=== PATIENT | female | born 1980 | race Caucasian/White ===

== ENCOUNTER 2017-02-27 03:21 | Inpatient (IN) | payer OTHER ==
[~2017-02-27] VITALS: Ht 167.6 cm; Wt 153.3 kg
[~2017-02-27 03:21] MED LIST: AMLODIPINE BESYL5 M1 PO; OMEPRAZOLE40 M1 PO
--- NOTE | 2017-02-27 14:08 | Operative Report ---
Operative/Inv Procedure Report Surgery Date: 02/27/17 Name of Procedure: Laparocopic Gastric Bypass, Laparoscopic Cholecystectomy Pre-Operative Diagnosis: Morbid Obesity BMI 58, MALGORZATA, Barretts esophagus, Cholelithiasis Post-Operative Diagnosis: Same Estimated Blood Loss: 50ml to 100ml Surgeon/Talent Engineer: TETE VENEGAS DO Anesthesia: general endotracheal tube IV Fluids: 2100 cc Drains: 10 Fr RUQ JOCELYN Drain Specimens: Gallbladder Complications: None Condition: Stable Operative Indication: This is a 36-year-old female that presented to the office for workup for bariatric surgery. After appropriate workup was completed we discussed with the patient the band, the sleeve, and the gastric bypass. The patient chose to undergo a gastric bypass. All risks including but not limited to bleeding, infection, leak, stricture, marginal ulcer, injury to surrounding bowel/ esophagus/stomach/liver/spleen, malabsorption/malnutrition, dumping syndrome, internal hernia/small bowel obstruction, DVT/PE, and mortality of 10/999 patients were discussed in detail. Patient was also found to have cholelithiasis during her preoperative workup and she was complaining of occasional epigastric postprandial discomfort. A laparoscopic cholecystectomy was discussed in detail and the patient preferred to have the procedure at the same time as the gastric bypass. I did explain to the patient that if the bypass took longer or there were any issues I will not do the lap cholecystectomy. All risks of the laparoscopic cholecystectomy including but not limited to bile leak and injury to surrounding duct/bowel were discussed in detail. The patient understood everything and decided to proceed. Operative/Procedure Note Note: The patient was brought to the operating room and placed on the table in supine position. Venodyne stockings were placed and adequate general endotracheal anesthesia was obtained. The patient was prepped and draped in standard surgical fashion. Began the procedure by making a 2 cm transverse incision supraumbilically and slightly to the left of the midline. Then using a 12 mm clear Visiport and a 10 mm 0 laparoscope the abdominal cavity was accessed. Great care was taken to go through the anterior rectus sheath, the posterior rectus sheath, and through the peritoneum. Once we entered the peritoneum the abdominal cavity was insufflated to 15 mmHg. Upon initial examination no obvious gross pathology was seen, a distended gallbladder was noted in the right upper quadrant. Accessory trocars were placed, 5 mm in the epigastrium for the Yolanda liver retractor. The liver retractor was inserted and the liver was retracted anteriorly exposing the hiatus, no obvious hiatal hernia was seen. 5 mm ports were placed in the right and left upper quadrant, 5 mm left lateral port, and a 12 mm right lateral port. Began the procedure by mobilizing the angle of His and the left hui of the diaphragm. The stomach was retracted towards the feet and the peritoneum was lysed until the left hui was clearly visualized. We then brought our attention to the lesser curvature, and at the second vessel we began accessing the retrogastric space. Was done using Harmonic scalpel maintaining hemostasis. Once the retrogastric space was accessed we began creating our pouch using 60 mm purple staple load 4. The pouch was created around an Nestor tube. Once the pouch was completely disconnected from the gastric remnant we examined the staple lines, some bleeding was noted and that was controlled using endoclips. We then brought our attention to the small bowel, the omentum was retracted above the transverse colon and the ligament of Treitz was identified. Of note the omentum was very heave and thick so it took some time to get the omentum above the transverse colon. The small bowel was run 50 cm and divided using 60 mm rizzo staple load. 2 clips were placed on the proximal staple line which was the biliopancreatic limb. That limb was run to the ligament of Treitz to assure that that was the blind limb. Following this the omentum was divided using Harmonic scalpel. After the omentum was divided the small bowel was coming up to the gastric pouch with no tension. At that point an enterotomy was made 5 cm from the prior divided distal staple line, jail between the mesenteric and antimesenteric side. A gastrotomy was made anterior to the staple line. A side to side gastrojejunostomy was created using 45 mm purple staple load approximately 3-3-1 /2 cm in diameter. The Nestor tube was passed through the common enterotomy, and the common enterotomy was closed using 2-0 Vicryl suture in a running fashion double layer. Following this the small bowel was clamped off distal to the anastomosis, and we preformed an air and a methylene blue leak test. No obvious leak was noted. All the methylene blue was suctioned out. The small bowel was then run 150 cm and an enterotomy was made on the antimesenteric side. Another enterotomy was made on the antimesenteric side of the biliopancreatic limb. A side to side functional end end jejunojejunostomy was created using 60 mm rizzo staple load. The common enterotomy was closed using a 60 mm rizzo staple load x 2. Some bleeding was noted from the staple line and that was controlled using endoclips as well. The mesenteric defect was closed using 2-0 Tycron suture in an interrupted fashion. At that point we examined both anastomoses no obvious bleeding was noted and both appeared intact. 2-0 Vicryl suture was placed at the distal angle of the gastrojejunostomy to take some tension off the anastomosis. And a 2-0 Vicryl suture was placed on the anterior surface of the gastrojejunostomy imbricating the staple line. At that point we brought our attention to the gallbladder in the right upper quadrant. The gallbladder was distended with omental adhesions around it. A 5 mm port was placed right upper quadrant in the anterior axillary line, 2 fingerbreadths below the costal margin. The gallbladder was grasped with the lateralmost trocar and retracted up over the liver. Omental adhesions were taken down using harmonc scalpel and blunt dissection. Using other 2 accessory trocars the infundibulum was grasped and the peritoneum was lysed using blunt dissection and using hook electrocautery. The cystic duct and cystic artery were visualized. The common bile duct was visualized and it was away from our area of dissection. The cystic duct and artery were skeletonized and divided, 3 clips to stay and one clip on the gallbladder side for the duct and the artery was divided using harmonic scalpel. The gallbladder was dissected off the liver bed using hook electrocautery maintaining hemostasis. Prior to completely removing the gallbladder off the liver bed we examined the area of dissection no obvious bile leak or bleeding was noted, the clips appeared to be in good position. The gallbladder was completely detached from the liver bed. A 10 mm Endobag was introduced through the periumbilical trocar site. The gallbladder was placed in the bag and removed through the umbilicus. The abdomen was reinsufflated. We switched back to a 10 mm laparoscope and examined our area of dissection. No obvious bile leak or bleeding was noted. The right upper quadrant was irrigated until clear. The left upper quadrant was irrigated as well. Both anastomosis were examined and appeared intact without bleeding. A 10 Iranian JOCELYN drain was placed through the right upper quadrant incision under the liver and over the spleen. All ports were removed under direct visualization, no obvious bleeding was noted. Periumbilical trocar site was closed using 0 Vicryl. Skin was closed using 4-0 Monocryl. Steri-Strips and dressings were placed. The patient was successfully extubated and transferred to the recovery room in stable condition. The patient tolerated the procedure well with no complications. Findings: no hiatal hernia, 150 cm alimentary limb, Cholelithiasis, thick gallbladder wall , distended gallbladder CC: LUCIEN SALAZAR,JINA Heard
--- NOTE | 2017-02-27 14:58 | Admission Core Measures ---
Admission Lab Results I reviewed the following labs: Laboratory Tests 02/27 0752 Urines Urine Test NEGATIVE Admission Meds I reviewed the following Meds: Current Medications Sig/Macie Start time Last Medication Dose Stop Time Status Admin Cefazolin Sodium 3,000 MG ONCE 02/27 0000 NR (Kefzol-Ancef Inj) 02/27 2359 Heparin Sodium 5,000 UNIT ONCE 02/27 0000 NR (Porcine) 02/27 235 Acute Coronary Syndrome Inclusion Criteria ACS Diagnosis No Inpatient Core Measures LDL Reminder: If No, please order W/I first 24hr of stay Congestive Heart Failure Inclusion Criteria CHF Diagnosis No Cerebrovascular accident Inclusion Criteria CVA/TIA Diagnosis No Inpatient Core Measures Bedside Swallow Eval Reminder: If BSE failed, place ST order Antithrombotic Reminder: Order Antithrombotic Medication by end of day 2 Antithrombotic Reminder: Document Reason Antithrombotic Not ordered by end of day 2 AFIB/Flutter Reminder: If Present, add to problem list AFIB/Flutter Reminder: Order Anticoag Medication for pts with AFIB/Flutter Atherosclerosis Reminder: If Present, add to problem list LDL Reminder: If No, please order W/I first 24hr of stay PT Order Reminder: If No, please order Venous thromboembolism Inpatient Core Measures VTE Risk Factors: Obesity, [facility] prophylaxis d/t No contraindications No VTE Pharm Prophylaxis d/t No contraindications Inclusion Criteria - Per Current guidelines, there needs to be overlap - treatment for the first 5 days of Warfarin therapy. - Parenteral Anticoagulation (IV or SC) needs to be - given along with Warfarin therapy. VTE Diagnosis No VTE Type NONE VTE Confirmed by (Test) NONE Problem List As ranked by this Provider includes Assessment & Plan 1. Hx laparoscopic cholecystectomy 2. S/P gastric bypass 3. Morbid obesity 4. Gallstones 5. Hypertension 6. Sleep apnea 7. GERD (gastroesophageal reflux disease) HOME MEDS Home Med List Amlodipine Besylate 5 MG TABLET 1 TAB PO DAILY HTN (Reported) Omeprazole 40 MG CAPSULE.DR 1 CAP PO DAILY HIATAL HERNIA (Reported)
--- NOTE | 2017-02-27 15:05 | Patient Discharge Instructions ---
Discharge Instructions General Discharge Information You were seen/treated for: Morbid Obesity BMI 58, MALGORZATA, Barretts esophagus, Cholelithiasis You had these procedures: Surgery Date: 02/27/17 Name of Procedure: Laparoscopic Gastric Bypass, Laparoscopic Cholecystectomy Watch for these problems: fever>101.3, increased pain, redness/swelling/drainage, dizziness, shortness of breath, chest pains No bath, but you may shower: Yes Other wound care: ok to remove outer dressings. leave white steri strips in place. keep incisions clean & dry. expect some drainage from previous drain site. dry guaze may be used as needed to cover. Diet Continue normal diet: No Recommended Diet: Bariatric Additional DIET Information: weekly bariatric stage diet advancements as tolerated, as directed Activity Full Activity/No Limits: No Activity Self Limited: Yes Pounds, do NOT lift more than: 10 Other activity limits: no heavy lifting. no strenuous activity. Additional ACTIVITY Info: walk frequently Acute Coronary Syndrome Inclusion Criteria At DC or during hospital stay patient has or had the following: ACS DIAGNOSIS No Discharge Core Measures Meds if any: Prescribed or Continued at Discharge Meds if any: NOT Prescribed or Continued at Discharge Congestive Heart Failure Inclusion Criteria At DC or during hospital stay patient has or had the following: CHF DIAGNOSIS No Discharge Core Measures Meds if any: Prescribed or Continued at Discharge Meds if any: NOT Prescribed or Continued at Discharge Cerebrovascular accident Inclusion Criteria At DC or during hospital stay patient has or had the following: CVA/TIA Diagnosis No Discharge Core Measures Meds if any: Prescribed or Continued at Discharge Meds if any: NOT Prescribed or Continued at Discharge Venous thromboembolism Inclusion Criteria VTE Diagnosis No VTE Type NONE VTE Confirmed by (Test) NONE Discharge Core Measures - Per Current guidelines, there needs to be overlap - treatment for the first 5 days of Warfarin therapy. - If discharged on Warfarin prior to 5 days of - overlap therapy, the patient will need to be - assessed for post discharge needs including - *Post discharge parental anticoagulation - *Warfarin and/or parental anticoagulation education - *Follow up date to check INR post discharge At least 5 days overlap therapy as Inpatient No Meds if any: Prescribed or Continued at Discharge Note: Overlap Therapy is Warfarin and Anticoagulant Meds if any: NOT Prescribed or Continued at Discharge
[2017-02-27] MEDS ORDERED: HYCET 7.5 MG-3473 ML PO (15:08)
[2017-02-27] MEDS ORDERED: LOVENOX40 MG/0.1 SC (15:08)
--- NOTE | 2017-02-27 15:15 | Surg Short-stay <48hrs Dis Sum ---
Visit Information Visit Dates Admission Date: 02/27/17 Discharge Date: 03/01/17 Surgical Short Stay DC Summary Admission Diagnosis: Morbid Obesity BMI 58, MALGORZATA, Barretts esophagus, Cholelithiasis Final Diagnosis: same, s/p Laparoscopic Gastric Bypass, Laparoscopic Cholecystectomy Procedure(s): Surgery Date: 02/27/17 Name of Procedure: Laparoscopic Gastric Bypass, Laparoscopic Cholecystectomy Summary/Significant Findings: Electively scheduled laparoscopic gastric bypass and laparoscopic cholecystectomy were done in combination on 02/27/17 by . She was started on a stage 1 bariatric diet the same day after her surgery, and she was placed npo for an upper gi study on post-op day#1 to rule out leak. Pain medication was transitioned from IV to oral. A JOCELYN drain was placed during surgery, which was removed prior to her discharge home. Her pre-operative blood pressure medication, norvasc 5 mg, was held post-operatively, and her blood pressure was monitored during her hospitalization. She was tolerating a stage 1 bariatric diet prior to her discharge to home on post-op day#2. Lovenox teaching was done, as her pre-op risk score of 6 warrants continued home treatment for dvt risk. Condition at Discharge: stable Discharge Disposition: home or self care Discharge instructions provided to patient/family: Yes Post discharge follow-up plan: one week follow up appointment with discharge instructions & prescriptions provided to the patient
--- NOTE | 2017-02-27 15:47 | PN- Bariatrics ---
Subjective Subjective: POST-OP NOTE Reports some gas pains. "Dry mouth". Denies nausea. Epigastric discomfort. Not yet out of bed. Voided in bedpan in pacu. Denies shortness of breath. No chest pains. No dizziness. Objective Vital Signs and I&Os pacu flowsheet reviewed, voided in pacu Physical Exam: General - alert & oriented x 3. comfortable. no acute distress. Lungs - clear bilaterally. no w/r/r. Cardiac - s1s2. reg. Abdomen - soft. dressings c/d/i. JOCELYN drain with bloody drainage. expected jackson- incisional tenderness. Extremities - warm bilaterally. no c/c/e. calves soft and nontender b/l. Assessment/Plan Assessment/Plan This 36 year old female with hx morbid obesity (bmi 58), hayden, barretts esophagus , and cholelithiasis POD#0 s/p laparoscopic gastric bypass, cholecystectomy, jpx1 stage 1 bariatric diet as tolerated npo after midnight for upper gi study in am iv tylenol / dilaudid / hycet as needed. avoid toradol for first 24 hours if possible. oob/ambulation encouraged hep sc - dvt ppx. lovenox teaching for home monitor JOCELYN drain protonix - gi ppx hold [facility]. monitor blood pressure f/u am labs jackson-operative ancef x 2 more doses will d/w Core Measures/Miscellaneous Venous Thromboembolism VTE Risk Factors: Obesity, Surgery VTE Contraindications: No Contraindications VTE Diagnosis: No VTE Type: NONE VTE Confirmed by (Test): NONE Beta Marija Is Beta Marija a Home Med? No Antibiotics Is Patient on Antibiotics? Yes If Yes: prophylaxis
[2017-02-27 15:50] VITALS: BP 134/84
[2017-02-27 20:09] VITALS: BP 132/82
--- NOTE | 2017-02-27 23:55 | NUR ---
1555 PATIENT ARRIVED TO FLOOR. ALERT AND ORIENTED X 3. ON 3L O2 VIA NC. VITAL SIGNS STABLE. + PULSES. DENIES NUMBNESS/TINGLING DSGS TO ABD ARE C/D/I. BED LOW AND LOCKED. CALL LIGHT WITHIN REACH
--- NOTE | 2017-02-28 07:08 | PN- Bariatrics ---
Subjective Subjective: The patient was seen this morning postoperatively day #1. She complaints of some mild upper abdominal pain for which the pain medication does help. She also has had some mild intermittent nausea which has been short-lived and self resolving. She has no other complaints the current time he denies any chest pain or difficulty breathing. Objective Vital Signs and I&Os Vital Signs Date Time Temp Pulse Resp B/P B/P Pulse O2 O2 Flow FiO2 Mean Ox Delivery Rate 02/28 0000 Nasal 3.5L Cannula 02/270 96 Nasal 3.0L Cannula 02/27 2015 Nasal 2.0L Cannula 02/27 2015 75 97 02/27 2009 99.6 75 19 132/82 97 Nasal 3.0L Cannula 02/28 2000 97 Nasal 3.0L Cannula 02/27 1800 95 Nasal 3.0L Cannula 02/27 1600 95 Nasal 3.0L Cannula 02/27 1555 Nasal 3.0L Cannula 02/27 1550 98.1 85 20 134/84 95 Nasal 3.0L Cannula Intake & Output 02/28 0800 02/28 0000 02/27 1600 02/27 0800 02/27 0000 02/26 1600 Intake Total 500 555 100 Output Total 500 1700 Balance 0 -1145 100 Intake, IV 500 255 Intake, Oral 0 300 100 Number 0 0 Bowel Movements Output, Urine 500 1700 Patient 338 lb Weight Physical Exam: Gen.: Alert and in no obvious distress Skin: Warm and dry Cardiac: S1 and S2 regular Pulmonary: Bilateral breath sounds are equal and decreased at bases Abdomen: Soft, obese, appropriate incisional tenderness, bowel sounds positive. Sites are clean, dry, and intact. There is JOCELYN 1 holding suction with serosanguineous drainage and bulb. Extremities: Bilateral lower extremities are warm without calf tenderness. Assessment/Plan Assessment/Plan Assessment: 33-year-old female status post laparoscopic gastric bypass and cholecystectomy postoperative day 1. The patient is progressing as expected and her pain is under adequate control. Plan: Keep nothing by mouth with slight hydration for an upper GI this morning. If the upper GI is normal the patient be restarted bariatric stage I diet Follow-up morning laboratory studies Out of bed and ambulate Incentive spirometry and wean O2 GI and DVT prophylaxis Lovenox education Core Measures/Miscellaneous Venous Thromboembolism VTE Risk Factors: Obesity, Surgery VTE Contraindications: No Contraindications VTE Diagnosis: No VTE Type: NONE VTE Confirmed by (Test): NONE Beta Marija Is Beta Marija a Home Med? No Antibiotics Is Patient on Antibiotics? No
[2017-02-28 07:41] VITALS: BP 113/58
[2017-02-28 09:08] LABS: ABSOLUTE BASOPHIL COUNT 0 /CUMM (0.0-0.2); ABSOLUTE EOSINOPHIL COUNT 0.1 /CUMM (0.0-0.7); ABSOLUTE GRANULOCYTE CT 8.1 /CUMM (1.4-6.5); ABSOLUTE LYMPH COUNT 1.2 /CUMM (1.2-3.4); BASOPHIL % 0.3 % (0.0-2.0); EOSINOPHIL % 0.8 % (0-5); GRANULOCYTE % 78.2 % (42.2-75.2); HEMATOCRIT 37.8 % (37-47); MEAN CORPUSCULAR HGB 30.2 PG (27.0-31.0); MEAN CORPUSCULAR HGB CONC 33.7 G/DL (33.0-37.0); MEAN CORPUSCULAR VOLUME 89.7 FL (81.0-99.0); MEAN PLATELET VOLUME 7.9 FL (7.4-10.4); PLATELET COUNT 231 /CUMM (130-400); RBC DISTRIBUTION WIDTH 14.2 % (11.5-14.5); RED BLOOD CELL CT 4.22 /CUMM (4.20-5.40)
[2017-02-28 09:09] LABS: WHITE BLOOD CELL COUNT 10.3 /CUMM (4.8-10.8)
--- NOTE | 2017-02-28 11:55 | RADIOLOGY REPORT ---
EXAMINATION: FLUOROSCOPY UPPER GI WITH GASTROGRAFIN AND KUB CLINICAL INFORMATION: 1 day status post gastric bypass study. Postoperative evaluation. Evaluate for gastric leak. COMPARISON: None. TECHNIQUE: A preliminary door captain view of the abdomen was performed in 3 parts. A limited Gastrografin upper GI study was then performed using 30 ml of Gastroview with the patient in the semiupright position. Multiple spot films were acquired. FINDINGS: The preliminary door captain view of the abdomen performed on 3 images demonstrates a drain and postsurgical tato in the epigastric region. Mild gaseous distention of bowel loops is seen without abnormal bowel distention seen. Mild linear subsegmental atelectasis is noted in the left lung base. Esophageal distensibility and motility is normal. The GE junction is located below the level of the diaphragm and no GE reflux seen. The remnant gastric pouch is normal with no abnormal distention or contrast leak seen. There is prompt emptying of contrast into the anastomosed small bowel, which is unremarkable in appearance. FLUOROSCOPY TIME: 19 seconds. IMPRESSION: Unremarkable postoperative examination status post gastric bypass. No evidence of contrast leak or outlet obstruction.
[2017-02-28 14:38] VITALS: BP 132/85
[2017-02-28 22:04] VITALS: BP 117/63
[2017-03-01 06:45] VITALS: BP 109/72
--- NOTE | 2017-03-01 06:59 | PN- Bariatrics ---
Subjective Subjective: Reports some discomfort with breathing. Some left side shoulder discomfort. No nausea. Tolerating stage 1 bariatric diet. Upper gi study negative for leak yesterday. No flatus yet. No bm. Voiding well. Reports ambulating, with some exertional dyspnea. Admits to feeling gas discomfort and some bloating. Receptive to trying dulcolax suppository. Anticipates discharge to home later today. Objective Vital Signs and I&Os Vital Signs Date Time Temp Pulse Resp B/P B/P Pulse O2 O2 Flow FiO2 Mean Ox Delivery Rate 03/01 06 CPAP 03/01 0000 CPAP 02/29 2204 99.8 87 18 117/63 97 Nasal 3.0L Cannula 02/28 1600 97 Nasal 2.5L Cannula 02/28 1438 97.5 75 20 132/85 96 Nasal 3.5L Cannula 02/28 1400 97 Nasal 3.0L Cannula 02/28 0800 98 Nasal 2.0L Cannula 02/28 0741 97.9 66 20 113/58 96 Nasal 3.0L Cannula Intake & Output 03/01 0800 03/01 0000 02/28 1600 02/28 0800 02/28 0000 02/27 1600 Intake Total 60 240 770 580 100 Output Total 420 30 492 547 2197 Balance -420 30 - 100 Intake, IV 770 280 Intake, Oral 60 240 0 300 100 Number 0 0 Bowel Movements Output, 20 30 15 Drainage Output, Urine 400 273 453 3486 Patient 338 lb Weight Physical Exam: General - alert & oriented x 3. comfortable. no acute distress. Lungs - decreased breath sounds b/l bases. clear. Cardiac - s1s2. reg. Abdomen - soft. dressings c/d/i. JOCELYN drain with serous drainage. expected incisional tenderness. Extremities - warm bilaterally. no c/c/e. calves soft and nontender b/l. athrombics active b/l. Current Medications: Current Medications Sig/Macie Start time Last Medication Dose Route Stop Time Status Admin Acetaminophen 1,000 MG Q6 02/27 1800 DC 02/28 N/A 1 UNIT IV 02/28 1214 1121 Acetaminophen/ 15 ML Q6P PRN 02/27 1645 AC 02/28 Hydrocodone Bitart PO 220 Bisacodyl 10 MG ONCE ONE 03/01 0700 UNVr MA 03/01 0701 Enoxaparin Sodium 40 MG DAILY 03/01 1000 AC SC Heparin Sodium 5,000 UNIT Q8 02/27 2200 DC 02/28 (Porcine) SC 02/28 2300 2157 Hydromorphone HCl 1 MG Q4P PRN 02/27 1645 AC 03/01 IV 0435 Ketorolac 30 MG Q6 03/01 0700 UNVr Tromethamine IV Ondansetron HCl 4 MG Q6P PRN 02/27 1645 AC 02/28 IV 1403 Pantoprazole Sodium 40 MG DAILY 02/28 1000 AC 02/28 IV 1121 Potassium Chloride 20 MEQ Q13H 02/28 0745 AC 02/28 Dextrose/Sodium 1,000 ML IV 0841 Chloride Potassium Chloride 20 MEQ Q8H 02/27 1645 DC 02/28 Dextrose/Sodium 1,000 ML IV 0341 Chloride Simethicone 40 MG Q6P PRN 02/27 1645 AC 03/01 PO 0435 Results Last 48 Hours of Labs: Laboratory Tests 02/28 02/27 0618 0752 Chemistry Sodium (137 - 145 mmol/L) 137 Potassium (3.5 - 5.1 mmol/L) 4.0 Chloride (98 - 107 mmol/L) 105 Carbon Dioxide (22 - 30 mmol/L) 25 Anion Gap (5 - 16) 8 BUN (7 - 17 mg/dL) 6 L Creatinine (0.5 - 1.0 mg/dL) 0.7 Estimated GFR (>60 ml/min) > 60 BUN/Creatinine Ratio (7 - 25 %) 8.6 Glucose (65 - 99 mg/dL) 109 H Magnesium (1.6 - 2.3 mg/dL) 2.0 Hematology CBC w Diff NO MAN DIFF REQ WBC (4.8 - 10.8 /CUMM) 10.3 RBC (4.20 - 5.40 /CUMM) 4.22 Hgb (12.0 - 16.0 G/DL) 12.8 Hct (37 - 47 %) 37.8 MCV (81.0 - 99.0 FL) 89.7 MCH (27.0 - 31.0 PG) 30.2 RDW (11.5 - 14.5 %) 14.2 Plt Count (130 - 400 /CUMM) 231 MPV (7.4 - 10.4 FL) 7.9 Gran % (42.2 - 75.2 %) 78.2 H Lymphocytes % (20.5 - 51.1 %) 11.5 L Monocytes % (1.7 - 9.3 %) 9.2 Eosinophils % (0 - 5 %) 0.8 Basophils % (0.0 - 2.0 %) 0.3 Absolute Granulocytes (1.4 - 6.5 /CUMM) 8.1 H Absolute Lymphocytes (1.2 - 3.4 /CUMM) 1.2 Absolute Monocytes (0.10 - 0.60 /CUMM) 1.0 H Absolute Eosinophils (0.0 - 0.7 /CUMM) 0.1 Absolute Basophils (0.0 - 0.2 /CUMM) 0 PUBS MCHC (33.0 - 37.0 G/DL) 33.7 Urines Urine Test NEGATIVE Assessment/Plan Assessment/Plan This 33-year-old female with hx htn, hayden (with cpap here) is POD#2 s/p lap gastric bypass and cholecystectomy tolerating stage 1 diet try dulcolax suppository lovenox - dvt ppx. lovenox teaching done for home treatment protonix - gi ppx blood pressure stable off norvasc (home med) IS encouraged. wean off o2 d/c JOCELYN drain likely d/c home later today if able to wean off o2 will d/w Core Measures/Miscellaneous Venous Thromboembolism VTE Risk Factors: Obesity, Surgery VTE Contraindications: No Contraindications VTE Diagnosis: No VTE Type: NONE VTE Confirmed by (Test): NONE Beta Marija Is Beta Marija a Home Med? No Antibiotics Is Patient on Antibiotics? No
--- NOTE | 2017-03-01 10:19 | NUR ---
PATIENT SELF ADMINISTERED LOVENOX UNDER OBSERVATION BY THIS RN APPROPRIATE HYGIENE AND ASEPTIC TECHNIQUE NOTED
--- NOTE | 2017-03-01 13:11 | NUR ---
Received voicemail from pt that she had more questions regarding diet for post-op. Visited with pt this morning and questions answered. Pt has RD contact information and will contact with further questions.
[2017-03-01 14:55] VITALS: BP 114/60
== END 2017-03-01 18:00 | DRG 621 ==
LOC: SDA 03:21 → ENRESERV 14:12 → 2NB 15:40 → ENPENDDIS 03-01 11:54 → 2NB 03-01 18:00
PROVIDERS: Physician Assistant; ADMIT Surgery
PROC: 0D164ZA Bypass Stomach to Jejunum, Percutaneous Endoscopic Approach (ICD-10-PCS; principal; 2017-02-27)
PROC: 0FT44ZZ Resection of Gallbladder, Percutaneous Endoscopic Approach (ICD-10-PCS; principal; 2017-02-27)
PROC: 3E0T3CZ (ICD-10-PCS; 2017-02-27)
DX: E66.01 Morbid (severe) obesity due to excess calories (principal); K22.70 Barrett's esophagus without dysplasia; Z68.43 Body mass index [BMI] 50.0-59.9, adult; K80.20 Calculus of gallbladder without cholecystitis without obstruction; G47.33 Obstructive sleep apnea (adult) (pediatric); Z87.891 Personal history of nicotine dependence
CPT/HCPCS: 2NBSP; 74240; 81025; 82436; 88304; C9399; J0131; J0690; J1170; J1644; J1650; J1885; J2405; J7042